=== PATIENT | male | born 2000 | race Caucasian/White ===

== ENCOUNTER 2022-02-11 18:35 | Emergency (ER) | payer OTHER | END 2022-02-11 21:32 | disposition home or self-care (01) | LOC: ER1 18:35 | DX: S09.90XA Unspecified injury of head, initial encounter (principal); S16.1XXA Strain of muscle, fascia and tendon at neck level, initial encounter; V49.40XA Driver injured in collision with unspecified motor vehicles in traffic accident, initial encounter; Y92.410 Unspecified street and highway as the place of occurrence of the external cause | CPT/HCPCS: 70450; 72125; 99283 ==